=== PATIENT | female | born 1960 | race Caucasian/White ===

== ENCOUNTER → 2020-09-29 | Outpatient (CLI) | payer OTHER ==
--- NOTE | 2020-09-29 16:58 | RAD ---
EXAM: AP and lateral views left knee DATE: 09/29/2020 10:06 AM INDICATION: Reason: LEFT KNEE PAIN / Spl. Instructions: / History: . COMPARISON: No Prior FINDINGS: No evidence of acute fracture or dislocation. Joint spaces are preserved without significant degenera tive/proliferative change. No joint effusion. IMPRESSION: No evidence of acute fracture or dislocation. Electronically signed by: Primitivo Jacobo MD (09/29/2020 4:56 PM) [id number]
== END ==
LOC: PF 07:59
PROVIDERS: ATTEND Anesthesiology Pain Medicine
DX: M25.562 Pain in left knee (principal); J44.9 Chronic obstructive pulmonary disease, unspecified
CPT/HCPCS: 73560; 94010; 94729

== ENCOUNTER → 2021-05-17 | Outpatient (CLI) | payer OTHER ==
--- NOTE | 2021-05-17 13:32 | RAD ---
EXAM: Left shoulder, 3 views. HISTORY: Pain. COMPARISON: None. FINDINGS: 3 views of the left shoulder obtained. There is no acute fracture, dislocation or subluxati on. There is minimal degenerative spurring involving the glenoid. IMPRESSION: Minimal glenohumeral joint osteoarthritis. No acute osseous finding. Electronically signed by: Sun Khan MD (05/17/2021 1:29 PM) [id number]
== END ==
LOC: PF 09:58
PROVIDERS: ATTEND Anesthesiology Pain Medicine
DX: Z02.71 Encounter for disability determination (principal); M19.012 Primary osteoarthritis, left shoulder; M77.8 Other enthesopathies, not elsewhere classified; J44.9 Chronic obstructive pulmonary disease, unspecified
CPT/HCPCS: 73030; 94060; 94640; 94664